=== PATIENT | male | born 1955 | race Caucasian/White ===

== ENCOUNTER 2017-09-13 18:06 | Emergency (ER) | payer SELFPAY ==
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
--- NOTE | 2017-09-13 19:02 | ER Document Report ---
ED General - General Chief Complaint: Fall Stated Complaint: NECK AND BACK PAIN Time Seen by Provider: 09/13/17 18:55 Notes: Patient is a 62-year-old male without past medical history who presents after falling off the top of the truck while unloading hay. States he landed directly onto his head. He arrives complaining of neck pain. The pain is described as a severe, constant, throbbing pain in the low cervical spine region. He states any attempt at moving the neck worsens the pain. He has not tried anything for improvement of the pain. He has no prior history of cervical injuries in the past. He denies any focal weakness or numbness but does note that he has a burning sensation on the dorsal forearms bilaterally. He denies any additional areas of injury or concern. TRAVEL OUTSIDE OF THE [place] IN LAST 30 DAYS: No - Related Data Allergies/Adverse Reactions: No Known Allergies Allergy (Unverified 07/15/14 09:37) Past Medical History - General Information source: Patient - Social History Smoking Status: Current Every Day Smoker Frequency of alcohol use: None Drug Abuse: None Lives with: Spouse/Significant other Family History: Reviewed & Not Pertinent - Past Medical History Cardiac Medical History: Denies: Hx Coronary Artery Disease, Hx Heart Attack, Hx Hypertension Pulmonary Medical History: Denies: Hx Asthma, Hx Bronchitis, Hx COPD, Hx Pneumonia Neurological Medical History: Denies: Hx Cerebrovascular Accident, Hx Seizures Musculoskeltal Medical History: Denies Hx Arthritis - Immunizations Hx Diphtheria, Pertussis, Tetanus Vaccination: Yes Review of Systems - Review of Systems Notes: Constitutional: Negative for fever. Eyes: Negative for visual changes. ENT: Negative for facial injury Cardiovascular: Negative for chest injury. Respiratory: Negative for shortness of breath. Gastrointestinal: Negative for abdominal injury. Genitourinary: Negative for genital injury Musculoskeletal: Positive for neck pain Skin: Negative for laceration/abrasions. Neurological: Positive for head injury. Physical Exam - Vital signs Vitals: Temp Pulse Resp BP Pulse Ox 98.1 F 80 18 150/95 H 99 09/13/17 18:11 09/13/17 18:11 09/13/17 18:11 09/13/17 18:11 09/13/17 18:11 Interpretation: Hypertensive Notes: PHYSICAL EXAMINATION: GENERAL: Appears mildly uncomfortable but in no acute distress HEAD: Atraumatic, normocephalic. EYES: Pupils equal round and reactive to light, extraocular movements intact, sclera anicteric, conjunctiva are normal. ENT: nares patent, no oral pharyngeal trauma. No hemotympanum, no Haddad's sign , no raccoon eyes. NECK: Diffuse midline cervical spine tenderness much worse in the low cervical spine particularly over the C6-7 region. LUNGS: Breath sounds clear to auscultation bilaterally and equal. No wheezes rales or rhonchi. HEART: Regular rate and rhythm without murmurs. CHEST WALL: No ecchymosis over the chest wall. ABDOMEN: Soft, nontender, normoactive bowel sounds. No guarding, no rebound. No abdominal bruising EXTREMITIES: Normal range of motion, no pitting or edema. No long bone deformities. BACK: No midline spinal tenderness, step-offs, or deformities. NEUROLOGICAL: Face symmetric. Tongue protrudes midline. Extraocular motions intact. Pupils are 2 mm and equally reactive. Normal speech, gait testing deferred. 5 out of 5 strength in both the distal and proximal upper and lower extremities bilaterally. Sensation is grossly intact throughout. Finger to nose testing normal. Pronator drift normal. PSYCH: Normal mood, normal affect. SKIN: Warm, Dry, normal turgor, small hematoma on the left central scalp Course - Re-evaluation Re-evalutation: 09/13/17 18:57 Patient presents after sustaining an axial load injury in which he fell off a truck landing directly on the top of his head. Patient presents complaining of diffuse lower cervical spine tenderness as well as burning in the bilateral forearms on the dorsal side. He has no focal neurologic deficits. His trauma examination is unremarkable with exception of midline cervical spine tenderness over the affected areas as well as a ecchymosis to the left central scalp. I did receive a call from the radiologist informing that the patient does have a fracture to the C5 through 7 vertebra with intrusion into the canal which would be consistent with an unstable cervical spine fracture. The patient has remained in cervical spine immobilization during the entirety of his stay here in the emergency department. An Cicero collar has been placed. I contacted [facility] for a trauma transfer and spoke to Dr. Mcmillanly was accepted the patient is a trauma transfer. The remainder of patient's trauma examination is otherwise unremarkable he denies any pain or complaints any other area. 09/13/17 20:19 Patient remains neurovascularly intact. He is complaining about pain with a cervical collar with point of pressure at the C7 vertebra. I have provided additional pain control and instructed the patient to keep the collor in place. 09/13/17 21:07 Transport has arrived for patient transfer. He is stable for transport at this time - Vital Signs Vital signs: Temp Pulse Resp BP Pulse Ox 98.3 F 81 18 129/77 H 96 09/13/17 20:55 09/13/17 20:55 09/13/17 20:55 09/13/17 20:55 09/13/17 20:55 - Diagnostic Test Radiology reviewed: Image reviewed, Reports reviewed Radiology results interpreted by me: 09/14/17 03:13 CT head: No acute intracranial bleed Discharge - Discharge Clinical Impression: Head injury Qualifiers: Encounter type: initial encounter Qualified Code(s): S09.90XA - Unspecified injury of head, initial encounter Multiple fractures of cervical spine, closed Qualifiers: Encounter type: initial encounter Qualified Code(s): S12.9XXA - Fracture of neck, unspecified, initial encounter Fall Qualifiers: Encounter type: initial encounter Qualified Code(s): W19.XXXA - Unspecified fall, initial encounter Condition: Fair Disposition: [facility] Referrals: ISAI LEGGETT MD [Primary Care Provider] - Follow up as needed
[2017-09-13] MEDS: MORPHINE SULFATE 10 MG/ML INJ IV PRN ×2 (19:43→20:18)
[2017-09-13] MEDS ORDERED: MORPHINE SULFATE 10 MG/ML INJ IV ONE (20:18)
[2017-09-13 21:08] VITALS: BP 129/77
== END 2017-09-13 21:11 | disposition short-term general hospital (02) ==
LOC: ER 18:06
DX: S12.490A Other displaced fracture of fifth cervical vertebra, initial encounter for closed fracture (principal); S12.590A Other displaced fracture of sixth cervical vertebra, initial encounter for closed fracture; S12.690A Other displaced fracture of seventh cervical vertebra, initial encounter for closed fracture; S09.90XA Unspecified injury of head, initial encounter; M54.2 Cervicalgia; M54.9 Dorsalgia, unspecified; R20.0 Anesthesia of skin; W17.89XA Other fall from one level to another, initial encounter; F17.200 Nicotine dependence, unspecified, uncomplicated
CPT/HCPCS: 96376; 99285; 96374; 70450; 72125; L0172; J2270

== ENCOUNTER 2019-01-08 20:38 | Emergency (ER) | payer BC, OTHER ==
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
[2019-01-08] MEDS ORDERED: LIDOCAINE 1%/EPINEPHRINE INJ 20 ML VIAL INJ ONE (21:39)
[2019-01-08 22:01] LABS: ABSOLUTE EOSINOPHILS # (AUTO) 0.3 10^3/uL (0.0-0.6); ABSOLUTE LYMPHOCYTES (AUTO) 1.1 10^3/uL (0.5-4.7); ABSOLUTE MONOCYTES (AUTO) 0.8 10^3/uL (0.1-1.4); ABSOLUTE NEUT (AUTO) 5.8 10^3/uL (1.7-8.2); BASOPHILS % (AUTO) 0.4 % (0-2); EOSINOPHILS % (AUTO) 3.8 % (0-6); HEMATOCRIT 36.7 % (37.9-51.0); HEMOGLOBIN 12.6 g/dL (13.5-17.0); LYMPHOCYTES % (AUTO) 13.9 % (13-45); MEAN CORPUSCULAR HEMOGLOBIN 31.4 pg (27.0-33.4); MEAN CORPUSCULAR HGB CONC 34.3 g/dL (32.0-36.0); MEAN CORPUSCULAR VOLUME 91 fl (80-97); MONOCYTES % (AUTO) 9.6 % (3-13); PLATELET COUNT 222 10^3/uL (150-450); RED BLOOD COUNT 4.02 10^6/uL (4.35-5.55); SEGMENTED NEUTROPHILS % (AUTO) 72.3 % (42-78); TOTAL CELLS COUNTED % (AUTO) 100 %; WHITE BLOOD COUNT 8.1 10^3/uL (4.0-10.5)
[2019-01-08 22:21] LABS: ANION GAP 10 (5-19); BLOOD UREA NITROGEN 44 mg/dL (7-20); CALCIUM 9.6 mg/dL (8.4-10.2); CARBON DIOXIDE 23 mmol/L (22-30); CHLORIDE 105 mmol/L (98-107); GLUCOSE 104 mg/dL (75-110); POTASSIUM 5.1 mmol/L (3.6-5.0); SODIUM 138.4 mmol/L (137-145)
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
[2019-01-08] MEDS ORDERED: ONDANSETRON HCL INJ/PF 4 MG/2 ML SDV IV ONE (23:33)
[2019-01-08] MEDS ORDERED: MORPHINE SULFATE 10 MG/ML INJ IV ONE (23:33)
[2019-01-09 02:01] VITALS: BP 126/75
== END 2019-01-09 01:46 | disposition home or self-care (01) ==
LOC: ER 20:38
DX: S51.811A Laceration without foreign body of right forearm, initial encounter (principal); S51.011A Laceration without foreign body of right elbow, initial encounter; S01.01XA Laceration without foreign body of scalp, initial encounter; S61.402A Unspecified open wound of left hand, initial encounter; S30.1XXA Contusion of abdominal wall, initial encounter; S10.91XA Abrasion of unspecified part of neck, initial encounter; M25.511 Pain in right shoulder; R07.81 Pleurodynia; V48.5XXA Car driver injured in noncollision transport accident in traffic accident, initial encounter; F17.200 Nicotine dependence, unspecified, uncomplicated
CPT/HCPCS: 99284; 96374; 96375; 36415; 85025; 80048; 73080; 70450; 71260; 72125; 74177; 12004; J3490; J2270; J2405

== ENCOUNTER 2019-06-04 12:59 | Emergency (ER) | payer OTHER, BC ==
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
[2019-06-04 15:28] VITALS: BP 121/69
== END 2019-06-04 15:56 | disposition home or self-care (01) ==
LOC: ER 12:59
DX: S16.1XXA Strain of muscle, fascia and tendon at neck level, initial encounter (principal); M54.2 Cervicalgia; F19.10 Other psychoactive substance abuse, uncomplicated; V87.7XXA Person injured in collision between other specified motor vehicles (traffic), initial encounter; I10 Essential (primary) hypertension
CPT/HCPCS: 72125; 99283